=== PATIENT | male | born 1945 | race Caucasian/White ===

== ENCOUNTER → 2017-01-02 | Day surgery (SDC) | payer OTHER ==
[~2017-01-02] VITALS: Ht 182.9 cm; Wt 102.0 kg
[2017-01-02] VITALS (15 sets, daily range): BP systolic 95–164; BP diastolic 59–100; PULSE 61–74; TEMP 36.3–37.3; O2SAT 90–100; Ht 182.9 cm; Wt 102.0 kg
[~2017-01-02] MED LIST: ASPI81TA28 PO; CHOL2000 PO; CLOP1TAB15 PO; COEN1CAP28 PO; GABA1CAP5 PO; MONT1TAB5 PO; NTRGSL/4 UT; NURSING VERBAL MED ORDER ONE; PANT40TA PO; ROSU20TA PO; SODIUM CHLORIDE 0.9% 1000ML 1,000 ML IV SCH; SYMIN160 INH; TIOT1SPR INH
--- NOTE | 2017-01-02 09:35 | History and Physical ---
History & Physical Date of Service Jan 02, 2017. History & Physical History of Present Illness Patient has been having difficulties breathing for several weeks now. He has been tried with antibiotic and prednisone over 2 to 3 different courses with no notable improvement. He notices increasing cough and congestion over this period of time with associated thick green mucus production which are difficult to clear. CTA showed no evidence of pulmonary emboli but was associated with severe emphysema and a right mm lower lobe nodule. Patient presents today for bronchoscopy with bronchial lavage for evaluation of his recent clinical decline. Active Problems 1. Allergic rhinitis 2. Chronic bronchitis 3. Chronic ischemic heart disease 4. Chronic obstructive pulmonary disease/ Emphysema (FEV1:43%-05/31/2012) ( significant improvement in the FVC) 5. Diaphragmatic hernia 6. Dysphagia 7. Dyspnea 8. Hiatal hernia 9. Hyperlipidemia 10. Hypoxia - Dependence on supplemental oxygen 11. Obstructive sleep apnea Past Medical History 1. History of Acute myocardial infarction of inferior wall 2. History of Prior Myocardial Infarction Of The Inferolateral Wall Surgical History 1. History of Appendectomy 2. History of Hernia Repair 3. History of Previous Stent Placement Family History 1. Family history of arthritis 2. Family history of Parkinson Disease 3. Family history of Parkinson Disease Social History Former smoker Marital History - Currently Uses Safety Equipment - Seatbelts Current Meds 1. HydrOXYzine HCl - 25 MG Oral Tablet; TAKE 1 TABLET 3 TO 4 TIMES DAILY NEEDED 2. Incruse Ellipta 62.5 MCG/INH Inhalation Aerosol Powder Breath Activated; USE 1 3. Levalbuterol HCl - 1.25 MG/3ML Inhalation Nebulization Solution; INHALE 1 UNIT DOSE 4. Proventil HFA 108 (90 Base) MCG/ACT Inhalation Aerosol Solution; INHALE 2 PUFFS 5. Symbicort 160-4.5 MCG/ACT Inhalation Aerosol; INHALE 2 PUFFS TWICE DAILY. RINSE 6. Anti Gas CAPS; As needed; 7. Aspirin 81 MG TABS; TAKE 1 TABLET DAILY 8. CoQ-10 100 MG Oral Capsule; TAKE 1 CAPSULE Daily; 9. Crestor 20 MG Oral Tablet; TAKE 1 TABLET DAILY 10. Gabapentin 300 MG Oral Capsule; TAKE 2 CAPSULE EVERY DAY; 11. Metoprolol Tartrate 25 MG Oral Tablet 12. Nitrostat 0.4 MG Sublingual Tablet Sublingual; PLACE 1 TABLET UNDER THE TONGUE 13. Pantoprazole Sodium 40 MG Oral Tablet Delayed Release; TAKE ONE TABLET BY 14. Plavix 75 MG Oral Tablet; TAKE 1 TABLET DAILY Allergies 1. Albuterol Sulfate NEBU 2. DuoNeb SOLN Vitals Height: 5 ft 10 in Weight: 220 lb BMI Calculated: 31.57 BSA Calculated: 2.17 O2 Saturation: 93, RA Heart Rate: 92 Respiration: 18 Temperature: 97.4 F Blood Pressure: 109 / 80, RUE Constitutional General appearance: No acute distress, well appearing and well nourished. Eyes Conjunctiva and lids: No swelling, erythema, or discharge. Pupils and irises: Equal, round and reactive to light. Ears, Nose, Mouth, and Throat External inspection of ears and nose: Normal. Otoscopic examination: Tympanic membrance translucent with normal light reflex. Canals patent without erythema. Oropharynx: Normal with no erythema, edema, exudate or lesions. Pulmonary Respiratory effort: No increased work of breathing or signs of respiratory distress. Auscultation of lungs: Abnormal. ~He has some faint wheezing in the upper airways on exhalation. Cardiovascular Palpation of heart: Normal PMI, no thrills. Auscultation of heart: Normal rate and rhythm, normal S1 and S2, without murmurs. Examination of extremities for edema and/or varicosities: Normal. Abdomen Abdomen: Non-tender, no masses. Liver and spleen: No hepatomegaly or splenomegaly. Psychiatric Orientation to person, place and time: Normal. Mood and affect: Normal.
--- NOTE | 2017-01-02 10:08 | History & Physical Bridge Note ---
H&P Re-Evaluation Bridge Note: I have examined the patient, reviewed the History & Physical and in the interval since the performance of the History & Physical I have noted the following changes of clinical significance: No changes noted
--- NOTE | 2017-01-02 10:09 | Procedure Note ---
Pre-Mod Sedation Assessment General Date of Moderate Sedation: Jan 02, 2017. Vital Signs: Vital Signs Past 12 Hours Date Time Temp Pulse Resp B/P (MAP) Pulse Ox O2 Delivery O2 Flow Rate FiO2 01/02/17 09:00 37.1 72 20 104/74 (84) 94 Room Air Review Cardiovascular: regular rate, rhythm, no edema, no gallop, no JVD, no murmur Abdomen: normal bowel sounds, non tender, soft, no organomegaly, no pulsatile mass, normal rectal exam Lungs: chest non-tender, lungs clear, normal breath sounds Airway Class: II Pre-Sedation Airway Assessment Oral Cavity: Dentures Able to Visualize Vocal Cords: Yes Short Thick Neck: Yes Hx of Sleep Apnea: Yes Smoking Status: Former Smoker Mallampati Classification: Class II ASA Classification: Class II Procedure Planning Contraindications-for Mod Sed: None Yes Notes The planned sedation has been discussed with the patient and consent obtained. I have identified the patient, determined the appropriateness of sedation and have assessed the patient immediately prior to the procedure. All medicine(s) and interventions are by my order.
--- NOTE | 2017-01-02 11:03 | Bronchoscopy Procedure Note ---
Bronchoscopy Procedure Note Procedure: Bronchoscopy, conscious sedation, bronchial lavage right upper lobe Consent: Obtained through the patient placed into the chart Pre-procedural diagnosis: Chronic cough with recurrent bronchitis Post-procedural diagnosis: Chronic cough with recurrent bronchitis Start time: 1033 End time: 1051 Total time: 18 minutes Analgesia: 2% liquid lidocaine: Via nebulizer 4% gel lidocaine: Via right naris 2% liquid lidocaine: Via bronchoscopy Sedation: Versed IV: 4mg Fentanyl IV: 100 g Procedure: The Olympus video bronchoscope was used for this procedure and passed down through the oropharynx and retroflexed off the soft palate then passed through right naris Retrograde view with the nasal pharynx: Diffuse nasal erythema bilaterally inferior medial turbinates appreciated Right naris/posterior naris/posterior oropharynx: Diffuse nasal erythema with associated edema Glottis: Anatomically within normal limits, erythema appreciated along the false vocal cords Vocal cords: Proper abduction and abduction, anatomically within normal limits Subglottis/trachea/Paula: Anatomically within normal limits, mild posterior wall erythema, notable bronchial ring calcification on the anterior portions of the first and second tracheal rings Right bronchial tree: Right mainstem bronchus: Anatomically within normal limits Right upper lobe: Abnormal bronchial ring anatomy was some moderate bronchial ring calcification, minimal mucous plugging but notable cough during entrance Bronchus intermedius: Anatomically within normal limits Right middle lobe: Anatomically within normal limits Right lower lobe: Anatomically within normal limits Findings: No significant findings noted, mild posterior wall erythema Left bronchial tree: Left mainstem bronchus: Anatomically within normal limits Left upper lobe: Anatomically within normal limits Lingula: Anatomically within normal limits, minimal mucous plugging Left lower lobe: Anatomically within normal limits Findings: No significant findings noted Bronchial alveolar lavage: Right upper lobe EBL: None Complications: None Follow-up: ASU
--- NOTE | 2017-01-02 11:03 | Procedure Note ---
Post-Moderate Sedation Plan General Date of Moderate Sedation Jan 02, 2017. Vital Signs: Vital Signs Past 12 Hours Date Time Temp Pulse Resp B/P (MAP) Pulse Ox O2 Delivery O2 Flow Rate FiO2 01/02/17 10:10 37.1 72 20 104/74 94 Room Air 01/02/17 09:00 37.1 72 20 104/74 (84) 94 Room Air Review - Discharge Plan Post Moderate Sedation Plan: On clinical assessment, the patient appears to have tolerated the conscious sedation without complications. Patient is recovering as anticipated. Patient will continue to be monitored by nursing and may be discharged when conscious sedation discharge criteria are met.
--- NOTE | 2017-01-02 11:06 | Discharge Instructions ---
Discharge Instructions Date of Service Jan 02, 2017. Admission Reason for Admission: Copd, Chronic Bronchitis Discharge Discharge Diagnosis / Problem: chronic cough with recurrent bronchiectasis Discharge Goals Goal(s): Diagnostic testing Activity Recommendations Activity Limitations: resume your previous activity . Instructions / Follow-Up Instructions / Follow-Up Follow-up in the not in the pulmonary division Current Hospital Diet Patient's current hospital diet: Discharge Diet Recommended Diet: Regular Diet Procedures Procedures Performed: Bronchoscopy, bronchial lavage, conscious sedation Pending Studies Studies pending at discharge: no Medical Emergencies . Who to Call and When: Medical Emergencies: If at any time you feel your situation is an emergency, please call 911 immediately. . Non-Emergent Contact Non-Emergency issues call your: Social Media Senior Associate . . "Provider Documentation" section prepared by Sandeep De León. . VTE Core Measure Inpt VTE Proph given/why not?: Other Anticoagulation (aspirin and Plavix)
== END | disposition home or self-care (01) ==
LOC: C.ACU 08:17
PROVIDERS: ATTEND Internal Medicine Critical Care Medicine
DX: J42 Unspecified chronic bronchitis (principal); J30.9 Allergic rhinitis, unspecified; J44.9 Chronic obstructive pulmonary disease, unspecified; R09.02 Hypoxemia; Z99.81 Dependence on supplemental oxygen; I25.2 Old myocardial infarction

== ENCOUNTER → 2017-05-02 | Day surgery (SDC) | payer OTHER ==
--- NOTE | 2017-05-01 12:50 | History and Physical ---
History & Physical Date of Service May 01, 2017. History & Physical 72-year-old male here for bronchoscopic evaluation of left lower lobe ground- glass nodule. Patient has a PmHx: Significant for very severe COPD, allergic rhinitis, ischemic heart disease, oxygen dependence, diaphragmatic hernia, esophageal reflux and thoracic aneurysm. Active Problems 1. Acute dyspnea (R06.00) 2. Allergic rhinitis (J30.9) 3. Chronic bronchitis (J42) 4. Chronic ischemic heart disease (I25.9) 5. Chronic obstructive pulmonary disease (Very Sever: FEV1 33%) 6. Dependence on supplemental oxygen (Z99.81) 7. Diaphragmatic hernia (K44.9) 8. Dysphagia (R13.10) 9. Dyspnea (R06.00) 10. Esophageal reflux (K21.9) 11. Hiatal hernia (K44.9) 12. Hyperlipidemia (E78.5) 13. Hypoxia (R09.02) 14. Obstructive sleep apnea (G47.33) 15. Pulmonary emphysema (J43.9) 16. Thoracic aortic aneurysm (I71.2) Past Medical History 1. History of Acute myocardial infarction of inferior wall (I21.19) 2. History of Prior Myocardial Infarction Of The Inferolateral Wall Surgical History 1. History of Appendectomy 2. History of Hernia Repair 3. History of Previous Stent Placement Family History 1. Family history of arthritis (Z82.61) 2. Family history of Parkinson Disease 3. Family history of Parkinson Disease Social History Denied: History of Alcohol Use (History) Denied: History of Drug Use Former smoker (Z87.891) Denied: History of Home Environment Domestic Violence Denied: History of Housing Without Smoke Detectors Marital History - Currently Uses Safety Equipment - Seatbelts Current Meds 1. HydrOXYzine HCl - 25 MG Oral Tablet; TAKE 1 TABLET 3 TO 4 TIMES DAILY NEEDED 2. Gentamicin in Saline 0.8-0.9 MG/ML-% Intravenous Solution; GENTAMYCIN 60MG IN 45 3. Incruse Ellipta 62.5 MCG/INH Inhalation Aerosol Powder Breath Activated; USE 1 4. Levalbuterol HCl - 1.25 MG/3ML Inhalation Nebulization Solution; INHALE 1 UNIT DOSE 5. Proventil HFA 108 (90 Base) MCG/ACT Inhalation Aerosol Solution; INHALE 2 PUFFS 6. Spiriva Respimat 2.5 MCG/ACT Inhalation Aerosol Solution; INHALE 2 PUFFS ONCE 7. Symbicort 160-4.5 MCG/ACT Inhalation Aerosol; INHALE 2 PUFFS TWICE DAILY. RINSE 8. Anti Gas CAPS; As needed; 9. Aspirin 81 MG TABS; TAKE 1 TABLET DAILY; 10. CoQ-10 100 MG Oral Capsule; TAKE 1 CAPSULE Daily; 11. Crestor 20 MG Oral Tablet; TAKE 1 TABLET DAILY; 12. Gabapentin 300 MG Oral Capsule; TAKE 2 CAPSULE EVERY DAY; 13. Metoprolol Tartrate 25 MG Oral Tablet; 14. Nitrostat 0.4 MG Sublingual Tablet Sublingual; PLACE 1 TABLET UNDER THE TONGUE 15. Pantoprazole Sodium 40 MG Oral Tablet Delayed Release; TAKE ONE TABLET BY 16. Plavix 75 MG Oral Tablet; TAKE 1 TABLET DAILY Allergies 1. Albuterol Sulfate NEBU 2. DuoNeb SOLN Immunizations Influenza --- Series1: 2012; Series2: 13-Nov-2014; Series3: Nov 2016 Vital Signs Weight: 209 lb BMI Calculated: 29.99 BSA Calculated: 2.13 Blood Pressure: 122 / 68 Respiration: 18 Heart Rate: 102 O2 Saturation: 95, RA Temperature: 97.6 F General appearance: No acute distress, well appearing and well nourished. Eyes Conjunctiva and lids: No swelling, erythema, or discharge. Pupils and irises: Equal, round and reactive to light. Ears, Nose, Mouth, and Throat External inspection of ears and nose: Normal. Otoscopic examination: Tympanic membrance translucent with normal light reflex. Canals patent without erythema. Oropharynx: Normal with no erythema, edema, exudate or lesions. Pulmonary Respiratory effort: No increased work of breathing or signs of respiratory distress. Auscultation of lungs: Abnormal. He has some faint wheezing in the upper airways on exhalation. Cardiovascular Palpation of heart: Normal PMI, no thrills. Auscultation of heart: Normal rate and rhythm, normal S1 and S2, without murmurs. Examination of extremities for edema and/or varicosities: Normal. Abdomen Abdomen: Non-tender, no masses. Liver and spleen: No hepatomegaly or splenomegaly. Psychiatric Orientation to person, place and time: Normal. Mood and affect: Normal.
[2017-05-02] VITALS (7 sets, daily range): BP systolic 87–140; BP diastolic 63–85; PULSE 60–83; TEMP 36.4–36.6; O2SAT 91–97; Ht 182.9 cm; Wt 95.5 kg
[~2017-05-02] VITALS: Ht 182.9 cm; Wt 95.5 kg
[~2017-05-02] MED LIST changes: +FENTANYL CITRATE INJ 50 MCG/1 ML 2 ML VIAL IV ONE; +GABA-1220 PO; -GABA1CAP5 PO; +LIDOCAINE 4% INH SOLN 4 ML BTL NEB ONE; +LIDOCAINE HCL 2% LOCAL 50ML VIAL INSTIL ONE; +LIDOCAINE VISCOUS 2% 100ML TOP ONE; +MIDAZOLAM HCL 5 MG/ML 1 ML VIAL IV ONE; -NURSING VERBAL MED ORDER ONE; -SODIUM CHLORIDE 0.9% 1000ML 1,000 ML IV SCH; +amox-clav PO; +prednisone taper PO
[2017-05-02 08:15] LABS: BASO % 0.1 %; BASO ABS # 0.01 K/uL (0-0.2); HEMATOCRIT 44.2 % (42-52); IG# 0.05 K/uL (0.00-0.02); LYMPH % 9.2 %; LYMPH ABS # 0.81 K/uL (1.2-3.4); MEAN CORPUSCULAR HEMOGLOBIN 29.9 pg (25-34); MEAN PLATELET VOLUME 8.8 fL (7.4-10.4); MONO ABS # 0.26 K/uL (0.11-0.59); NEUT % 87.1 %; NEUT ABS # 7.68 K/uL (1.4-6.5); PLATELET COUNT 207 K/uL (130-400); RED CELL DISTRIBUTION WIDTH CV 14.5 % (11.5-14.5); RED CELL DISTRIBUTION WIDTH SD 46.4 fL (36.4-46.3); WHITE BLOOD COUNT 8.81 K/uL (4.8-10.8)
[2017-05-02 08:17] LABS: MEAN CORPUSCULAR HGB CONC 33.9 g/dl (32-36)
[2017-05-02 08:27] LABS: PTT PATIENT 22.1 SECONDS (21.0-31.0)
[2017-05-02 08:44] LABS: ALBUMIN 3.8 gm/dl (3.4-5.0); CREATININE 1.05 mg/dl (0.60-1.40); POTASSIUM 4.3 mmol/L (3.5-5.1); TOTAL PROTEIN 7.2 gm/dl (6.4-8.2)
--- NOTE | 2017-05-02 09:05 | Pre Sedation Assessment ---
Pre Sedation Assessment General Date of Sedation: May 02, 2017. Vital Signs Past 12 Hours Date Time Temp Pulse Resp B/P (MAP) Pulse Ox O2 Delivery O2 Flow Rate FiO2 05/02/17 08:08 36.4 83 22 140/85 (103) 96 Room Air Review Cardiovascular: regular rate, rhythm, no edema, no gallop, no JVD, no murmur, normal peripheral pulses Lungs: chest non-tender, lungs clear, normal breath sounds, no respiratory distress, no accessory muscle use Pre-Sedation Airway Assessment Smoking Status: Former Smoker Hx of Sleep Apnea: Yes Hx of difficult intubation: No Short Thick Neck: No Thyro-mental Distance: > 3 Finger Breadths Oral Cavity: Dentures Mallampati Classification: Class III ASA Classification: Class II Procedure Planning Contraindications for Sedation: None Current Medications Reviewed: Yes Notes The planned sedation has been discussed with the patient. Informed Consent was obtained. I have identified the patient, determined the appropriateness of sedation and have assessed the patient immediately prior to the procedure. All medicine(s) and interventions are by my order.
--- NOTE | 2017-05-02 09:53 | Bronchoscopy Procedure Note ---
Bronchoscopy Procedure Note Procedure: Bronchoscopy, conscious sedation, bronchial lavage right upper lobe Consent: Obtained through the patient placed into the chart Pre-procedural diagnosis: Chronic cough with recurrent bronchitis and left lower lobe nodule Post-procedural diagnosis: Chronic cough with recurrent bronchitis and left lower lobe nodule Start time: 929 End time: 944 Total time: 15 minutes Analgesia: 2% liquid lidocaine: Via nebulizer 4% gel lidocaine: Via right naris 2% liquid lidocaine: Via bronchoscopy Sedation: Versed IV: 4mg Fentanyl IV: 100 g Procedure: The EATON video bronchoscope was used for this procedure and passed down through the right naris: Diffuse erythema of the right naris Right naris/posterior naris/posterior oropharynx: Diffuse nasal erythema with associated edema Glottis: Anatomically within normal limits Vocal cords: Proper abduction and abduction, anatomically within normal limits Subglottis/trachea/Paula: Anatomically within normal limits, bronchial ring calcification on the anterior portions of the first and second tracheal rings Right bronchial tree: Right mainstem bronchus: Anatomically within normal limits Right upper lobe: Abnormal bronchial ring anatomy was some moderate bronchial ring calcification Bronchus intermedius: Anatomically within normal limits Right middle lobe: Anatomically within normal limits Right lower lobe: Mild bronchial ring distortion and minimal mucous plugs appreciated Findings: No significant findings noted, mild posterior wall erythema Left bronchial tree: Left mainstem bronchus: Anatomically within normal limits Left upper lobe: Anatomically within normal limits Lingula: Anatomically within normal limits Left lower lobe: Anatomically within normal limits Findings: No significant findings noted Bronchial alveolar lavage: Right lower lobe and left lower lobe EBL: None Complications: None Follow-up: ASU
--- NOTE | 2017-05-02 09:55 | Post Sedation Assessment ---
Post Sedation Assessment General Date of Sedation May 02, 2017. Vital Signs: Vital Signs Past 12 Hours Date Time Temp Pulse Resp B/P (MAP) Pulse Ox O2 Delivery O2 Flow Rate FiO2 05/02/17 09:45 65 12 134/86 94 Mask 8 05/02/17 09:40 65 18 134/86 97 Mask 8 05/02/17 09:35 65 18 146/96 99 Mask 8 05/02/17 09:30 70 18 167/103 100 Mask 8 05/02/17 09:25 70 18 143/92 100 Mask 8 05/02/17 09:20 61 18 160/91 100 Mask 8 05/02/17 08:08 36.4 83 22 140/85 (103) 96 Room Air Post Procedure Recovery Score Activity: (2) Moves 4 extremities * Respiration: (2) Deep breath/cough Circulation: (2) +/-20% PreAnes Value Consciousness: (1) Arouseable (by name) Oxygen Saturation: (1) O2 needed for >90% Post Anesthesia Score: 8 Discharge Sedation Level of Care: Fast Track Phase II Post Sedation Plan On clinical assessment, the patient appears to have tolerated the sedation without complications. Patient is recovering as anticipated. Patient will continue to be monitored by nursing and may be discharged when sedation discharge criteria are met per below protocol. Upon Completions of procedure and additional 15 minutes continue every 5 minute vital signs and the P.A.R. score; then discharge to a Phase I or Fast Track to Phase II per the following guidelines: * Discharge Patient to appropriate Phase II area if PAR is 8 or greater or return to pre- procedure baseline. The post - procedure orders will be as directed. * If PAR score is less than 8 or not return to pre-procedure baseline then patient will follow Phase I monitoring till PAR is reached for Phase II. The Phase I may be done in procedure room or may call to secure a Phase I area. * If naloxone or flumazenil are used for reversal, hold in Phase I for an additional 60 -120 minutes before discharge to Phase II. Please call the Sedation Physician to re-evaluate and complete post-note for discharge to Phase II area. Do NOT discharge from procedure sedation or Phase 1 until post- sedation evaluation note is complete by procedure /sedation MD Sedation Discharge Instructions to be given to the patient at discharge to home.
--- NOTE | 2017-05-02 09:59 | Discharge Instructions ---
Discharge Instructions Date of Service May 02, 2017. Admission Reason for Admission: Pulm Nodule,Copd,Sob Discharge Discharge Diagnosis / Problem: Chronic cough with associated rhinitis and new left lower lobe nodule Discharge Goals Goal(s): Diagnostic testing Activity Recommendations Activity Limitations: resume your previous activity Driving or Machine Use: resume 1 day after discharge . Instructions / Follow-Up Instructions / Follow-Up Follow[facility]up with the [facility] pulmonary team Current Hospital Diet Patient's current hospital diet: Discharge Diet Recommended Diet: Regular Diet Procedures Procedures Performed: Bronchoscopy, bronchial lavage of the left lower and right lower lobes, conscious sedation Pending Studies Studies pending at discharge: no Medical Emergencies . Who to Call and When: Medical Emergencies: If at any time you feel your situation is an emergency, please call 911 immediately. . Non-Emergent Contact Non-Emergency issues call your: Cable Television Installer Call Non-Emergent contact if: temperature is above 101 . . "Provider Documentation" section prepared by Sandeep De León. .
== END | disposition home or self-care (01) ==
LOC: C.ACU 07:30
PROVIDERS: ATTEND Internal Medicine Critical Care Medicine
DX: R05 Cough (principal); J40 Bronchitis, not specified as acute or chronic; R91.1 Solitary pulmonary nodule; J44.9 Chronic obstructive pulmonary disease, unspecified; J30.9 Allergic rhinitis, unspecified; I25.9 Chronic ischemic heart disease, unspecified; Z99.81 Dependence on supplemental oxygen; E78.5 Hyperlipidemia, unspecified; G47.33 Obstructive sleep apnea (adult) (pediatric); I25.2 Old myocardial infarction; Z90.89 Acquired absence of other organs; Z98.890 Other specified postprocedural states; Z79.82 Long term (current) use of aspirin; Z79.899 Other long term (current) drug therapy; Z79.02 Long term (current) use of antithrombotics/antiplatelets; Z82.61 Family history of arthritis; Z82.0 Family history of epilepsy and other diseases of the nervous system